=== PATIENT | male | born 1985 | race Two or more races ===

== ENCOUNTER 2020-08-15 08:50 | Outpatient (CLI) | payer BC, MEDICAID | END 2020-08-15 23:59 | disposition home or self-care (01) | LOC: MSC 08:50 | PROVIDERS: ATTEND Internal Medicine | DX: H66.93 Otitis media, unspecified, bilateral (principal); H60.93 Unspecified otitis externa, bilateral; I10 Essential (primary) hypertension; J45.909 Unspecified asthma, uncomplicated ==

== ENCOUNTER 2021-01-03 10:55 | Outpatient (CLI) | payer MEDICAID | END 2021-01-03 23:59 | disposition home or self-care (01) | LOC: MSC 10:55 | PROVIDERS: ATTEND Internal Medicine | DX: I10 Essential (primary) hypertension (principal); M54.5 Low back pain; J45.909 Unspecified asthma, uncomplicated; R63.5 Abnormal weight gain; Z68.35 Body mass index [BMI] 35.0-35.9, adult; Z71.82 Exercise counseling; Z86.69 Personal history of other diseases of the nervous system and sense organs; Z79.51 Long term (current) use of inhaled steroids; Z79.899 Other long term (current) drug therapy ==